=== PATIENT | female | born 1950 | race Caucasian/White ===

== ENCOUNTER 2018-04-22 11:41 | Inpatient (IN) | payer OTHER ==
[2018-04-22 12:26] LABS: ADD MAN DIFF? NO
[2018-04-22 12:27] LABS: BASOPHIL # 0.1 10^3/ul (0.0-0.1); BASOPHILS % 0.5 % (0.0-2.0); EOSINOPHILS # 0.3 10^3/ul (0.0-0.5); EOSINOPHILS % 1.9 % (0.0-7.0); HEMATOCRIT 45.2 % (37.0-47.0); HEMOGLOBIN 15.1 g/dl (12.0-16.0); LYMPHOCYTES # 1.9 10^3/ul (0.8-2.9); LYMPHOCYTES % 11.9 % (15.0-51.0); MEAN CORPUSCULAR HEMOGLOBIN 29.6 pg (29.0-33.0); MEAN CORPUSCULAR HGB CONC 33.4 g/dl (32.0-37.0); MEAN CORPUSCULAR VOLUME 88.6 fl (82.0-101.0); MEAN PLATELET VOLUME 9.9 fl (7.4-10.4); MONOCYTE # 0.9 10^3/ul (0.3-0.9); MONOCYTES % 5.6 % (0.0-11.0); NEUTROPHIL # 12.7 10^3/ul (1.6-7.5); NEUTROPHILS % 79.8 % (39.0-77.0); PLATELET COUNT 282 10^3/UL (140-415); RED CELL DISTRIBUTION WIDTH 11.9 % (11.5-14.5)
[2018-04-22 12:27] LABS: WHITE BLOOD COUNT 15.9 10^3/ul (4.8-10.8)
[2018-04-22] MEDS: morphine 4 MG/ML VIAL IV (12:40)
[2018-04-22 12:44] LABS: ALANINE AMINOTRANSFERASE 70 IU/L (13-69); ALBUMIN 4.4 g/dl (3.3-4.9); ALBUMIN/GLOBULIN RATIO 1.29; ALKALINE PHOSPHATASE 70 IU/L (42-121); ANION GAP 15 (8-16); ASPARTATE AMINO TRANSFERASE 43 IU/L (15-46); BILIRUBIN,INDIRECT 0.5 mg/dl (0-1.1); BILIRUBIN,TOTAL 0.5 mg/dl (0.2-1.3); BLOOD UREA NITROGEN 12 mg/dl (7-20); CALCIUM 9.3 mg/dl (8.4-10.2); CARBON DIOXIDE 27 mmol/L (21-31); CHLORIDE 104 mmol/L (97-110); CREATININE 0.83 mg/dl (0.44-1.00); GLUCOSE 131 mg/dl (70-220); POTASSIUM 4.1 mmol/L (3.5-5.1); SODIUM 142 mmol/L (135-144); TOTAL PROTEIN 7.8 g/dl (6.1-8.1)
[2018-04-22] MEDS: PIPER-TAZO 3.375 GM IV (PMX) 100 ML IVPB ×2 (13:20→21:20)
[2018-04-22 13:28] LABS: ADD UMIC NO; UR ASCORBIC ACID NEGATIVE (NEGATIVE); UR BILIRUBIN (Dip) NEGATIVE (NEGATIVE); UR BLOOD (Dip) NEGATIVE (NEGATIVE); UR CLARITY CLEAR (CLEAR); UR COLOR YELLOW (YELLOW); UR GLUCOSE (Dip) NEGATIVE (NEGATIVE); UR KETONES (Dip) NEGATIVE (NEGATIVE); UR LEUKOCYTE ESTERASE (Dip) NEGATIVE Leu/ul (NEGATIVE); UR NITRITE (Dip) NEGATIVE (NEGATIVE); UR SPECIFIC GRAVITY (Dip) 1.018 (1.003-1.030); UR TOTAL PROTEIN (Dip) NEGATIVE (NEGATIVE); UR UROBILINOGEN (Dip) NEGATIVE (NEGATIVE)
[2018-04-22] MEDS: SOD CHLORIDE 0.9% 1,000 ML IV ×2 (14:00→16:15)
[2018-04-22] MEDS ORDERED: ONDANSETRON 4 MG INJ IV (14:30)
[2018-04-22] MEDS: ACETAMINOPHEN 325 MG TAB PO (14:55)
[2018-04-22] MEDS ORDERED: INSULIN ASPART [NOVOLOG] 3 ML PEN SC (15:00)
[2018-04-22] MEDS ORDERED: NACL 0.9% 3 ML SYG IV (15:00)
[2018-04-22] MEDS ORDERED: GLUCAGON 1 MG INJ IM (15:30)
[2018-04-22] MEDS ORDERED: GLUCOSE GEL 15 GRAM TUBE PO ×2 (15:30)
[2018-04-22] MEDS ORDERED: GLUCOSE GEL 15 GRAM TUBE BUCCAL (15:30)
[2018-04-22] MEDS ORDERED: DEXTROSE 50% 50 ML SYRINGE IV ×2 (15:30)
[2018-04-22] MEDS: Insulin NOVOLOG SS MILD Algorithm (NPO/TPN/ENTERAL FEEDS) SC ×2 (16:14→21:00)
[2018-04-22 17:07] LABS: HEMOGLOBIN A1C 6.4 % (0-5.9)
[2018-04-22] MEDS: ONDANSETRON 4 MG INJ IV (18:27)
[2018-04-22] MEDS: morphine 2 MG INJ IV (18:27)
[2018-04-22] MEDS: HYDROCODONE/APAP (5/325) TAB PO (20:12)
[2018-04-22] MEDS ORDERED: MIDAZOLAM 1 MG/ML 2 ML INJ (23:07)
[2018-04-22] MEDS: BUPIVACAINE 0.25%/EPI (SDV) 30 ML INJ (23:41)
[2018-04-23] MEDS ORDERED: KETOROLAC 30 MG INJ (00:11)
[2018-04-23] MEDS ORDERED: NEOSTIGMINE 3 MG/3 ML SYRINGE (00:12)
[2018-04-23] MEDS ORDERED: PROPOFOL 20 ML (00:12)
[2018-04-23] MEDS ORDERED: ROCURONIUM 50 MG INJ (00:12)
[2018-04-23] MEDS ORDERED: ONDANSETRON 4 MG INJ (00:12)
[2018-04-23] MEDS ORDERED: GLYCOPYRROLATE 0.4 MG INJ (00:12)
[2018-04-23] MEDS ORDERED: ETOMIDATE 20 MG INJ (00:12)
[2018-04-23] MEDS ORDERED: LIDOCAINE 2% (SDV) 5 ML INJ (00:12)
[2018-04-23] MEDS: SOD CHLORIDE 0.9% 1,000 ML IV ×4 (00:47→20:29)
[2018-04-23] MEDS ORDERED: DIPHENHYDRAMINE 50 MG INJ IV (01:00)
[2018-04-23] MEDS ORDERED: FENTAnyl 50 MCG/ML VIAL IV (01:00)
[2018-04-23] MEDS ORDERED: hydrALAzine 20 MG INJ IV (01:00)
[2018-04-23] MEDS ORDERED: LABETALOL HCL 20MG INJ IV (01:00)
[2018-04-23] MEDS: Insulin NOVOLOG SS MILD Algorithm (NPO/TPN/ENTERAL FEEDS) SC ×3 (01:00→08:41)
[2018-04-23] MEDS ORDERED: MEPERIDINE 25 MG INJ IV (01:00)
[2018-04-23] MEDS ORDERED: HYDROmorphONE 1 MG/5 ML IV SYRINGE IV ×2 (01:00)
[2018-04-23] MEDS ORDERED: ONDANSETRON 4 MG INJ IV (01:00)
[2018-04-23] MEDS ORDERED: HYDROCODONE/APAP (5/325) TAB PO (01:30)
[2018-04-23] MEDS ORDERED: KETOROLAC 15 MG INJ IV (01:30)
[2018-04-23] MEDS ORDERED: HYDROmorphONE 0.5 MG/0.5 ML SYG IV (01:30)
[2018-04-23] MEDS ORDERED: ACETAMINOPHEN 325 MG TAB PO (01:30)
[2018-04-23] MEDS: D5W-0.45 NACL + KCL 20 MEQ 1,000 ML IV ×2 (01:55→13:06)
[2018-04-23] MEDS: PIPER-TAZO 3.375 GM IV (PMX) 100 ML IVPB ×3 (05:37→21:06)
[2018-04-23 05:39] LABS: ADD MAN DIFF? NO
[2018-04-23 05:44] LABS: BASOPHIL # 0.1 10^3/ul (0.0-0.1); BASOPHILS % 0.3 % (0.0-2.0); HEMATOCRIT 39.3 % (37.0-47.0); HEMOGLOBIN 13.1 g/dl (12.0-16.0); LYMPHOCYTES # 1.6 10^3/ul (0.8-2.9); MEAN CORPUSCULAR HEMOGLOBIN 30.1 pg (29.0-33.0); MEAN CORPUSCULAR HGB CONC 33.3 g/dl (32.0-37.0); MEAN CORPUSCULAR VOLUME 90.3 fl (82.0-101.0); MEAN PLATELET VOLUME 10.1 fl (7.4-10.4); MONOCYTE # 1.1 10^3/ul (0.3-0.9); MONOCYTES % 6.3 % (0.0-11.0); NEUTROPHIL # 14.9 10^3/ul (1.6-7.5); NEUTROPHILS % 83.9 % (39.0-77.0); NUCLEATED RED BLOOD CELLS% 0.1 /100WBC (0.0-0.0); PLATELET COUNT 257 10^3/UL (140-415); RED BLOOD COUNT 4.35 10^6/ul (4.20-5.40); RED CELL DISTRIBUTION WIDTH 12.6 % (11.5-14.5)
[2018-04-23 05:44] LABS: WHITE BLOOD COUNT 17.8 10^3/ul (4.8-10.8)
[2018-04-23] MEDS: HYDROCODONE/APAP (5/325) TAB PO ×2 (06:09→15:32)
[2018-04-23 06:12] LABS: CHOL/HDL RATIO 3.2 RATIO; LDL CHOLESTEROL,CALCULATED 87 mg/dl
[2018-04-23 06:14] LABS: CHOLESTEROL 145 mg/dl (100-200); HDL CHOLESTEROL 45 mg/dl (35-98); INR 1.19; MAGNESIUM 1.8 mg/dl (1.7-2.5); PROTIME 15.3 Sec (11.9-14.9); PT RATIO 1.2; TRIGLYCERIDES 67 mg/dl (0-149)
[2018-04-23 06:14] LABS: PHOSPHORUS 4.3 mg/dl (2.5-4.9)
[2018-04-23 06:15] LABS: PARTIAL THROMBOPLASTIN TIME 31.5 Sec (25.0-35.0)
[2018-04-23 06:30] LABS: ALANINE AMINOTRANSFERASE 52 IU/L (13-69); ALBUMIN 3.7 g/dl (3.3-4.9); ALBUMIN/GLOBULIN RATIO 1.23; ALKALINE PHOSPHATASE 48 IU/L (42-121); ANION GAP 15 (8-16); ASPARTATE AMINO TRANSFERASE 25 IU/L (15-46); BILIRUBIN,INDIRECT 0.4 mg/dl (0-1.1); BILIRUBIN,TOTAL 0.4 mg/dl (0.2-1.3); BLOOD UREA NITROGEN 15 mg/dl (7-20); CALCIUM 8.6 mg/dl (8.4-10.2); CARBON DIOXIDE 24 mmol/L (21-31); CHLORIDE 106 mmol/L (97-110); CREATININE 1.04 mg/dl (0.44-1.00); GLUCOSE 166 mg/dl (70-220); POTASSIUM 3.8 mmol/L (3.5-5.1); SODIUM 141 mmol/L (135-144); TOTAL PROTEIN 6.7 g/dl (6.1-8.1)
[2018-04-23] MEDS: BENAZEPRIL 10 MG TAB PO (08:37)
[2018-04-23] MEDS ORDERED: INSULIN ASPART [NOVOLOG] 3 ML PEN SC (12:00)
[2018-04-23] MEDS: Insulin NOVOLOG SS MILD Algorithm (SS with meals and bedtime) SC ×3 (12:00→20:32)
[2018-04-23] MEDS: ACETAMINOPHEN 325 MG TAB PO ×2 (15:54→23:11)
[2018-04-23 17:56] LABS: LACTIC ACID 1.6 mmol/L (0.5-2.0)
[2018-04-23 21:40] LABS: LACTIC ACID 0.9 mmol/L (0.5-2.0)
[2018-04-23] MEDS: hydrALAzine 20 MG INJ IV (23:10)
[2018-04-24] MEDS: ONDANSETRON 4 MG INJ IV (00:21)
[2018-04-24] MEDS: hydrALAzine 20 MG INJ IV (01:11)
[2018-04-24] MEDS: PIPER-TAZO 3.375 GM IV (PMX) 100 ML IVPB ×2 (05:37→14:08)
[2018-04-24] MEDS: SOD CHLORIDE 0.9% 1,000 ML IV ×3 (06:27→14:09)
[2018-04-24] MEDS: morphine 2 MG INJ IV (06:37)
[2018-04-24 06:44] LABS: ADD MAN DIFF? NO
[2018-04-24 06:47] LABS: WHITE BLOOD COUNT 10.5 10^3/ul (4.8-10.8)
[2018-04-24 06:47] LABS: BASOPHIL # 0.1 10^3/ul (0.0-0.1); BASOPHILS % 0.6 % (0.0-2.0); EOSINOPHILS # 0.1 10^3/ul (0.0-0.5); HEMATOCRIT 39.6 % (37.0-47.0); LYMPHOCYTES # 1.4 10^3/ul (0.8-2.9); LYMPHOCYTES % 13.4 % (15.0-51.0); MEAN CORPUSCULAR HEMOGLOBIN 30.2 pg (29.0-33.0); MEAN CORPUSCULAR HGB CONC 32.8 g/dl (32.0-37.0); MEAN CORPUSCULAR VOLUME 91.9 fl (82.0-101.0); MONOCYTE # 0.8 10^3/ul (0.3-0.9); MONOCYTES % 7.9 % (0.0-11.0); NEUTROPHILS % 76.3 % (39.0-77.0); PLATELET COUNT 216 10^3/UL (140-415); RED BLOOD COUNT 4.31 10^6/ul (4.20-5.40); RED CELL DISTRIBUTION WIDTH 12.2 % (11.5-14.5)
[2018-04-24 07:10] LABS: ANION GAP 13 (8-16); BLOOD UREA NITROGEN 8 mg/dl (7-20); CALCIUM 8.3 mg/dl (8.4-10.2); CARBON DIOXIDE 25 mmol/L (21-31); CHLORIDE 106 mmol/L (97-110); CREATININE 0.73 mg/dl (0.44-1.00); GLUCOSE 130 mg/dl (70-220); POTASSIUM 3.9 mmol/L (3.5-5.1); SODIUM 140 mmol/L (135-144)
[2018-04-24 07:12] LABS: MAGNESIUM 1.9 mg/dl (1.7-2.5)
[2018-04-24 07:12] LABS: PHOSPHORUS 2.3 mg/dl (2.5-4.9)
[2018-04-24] MEDS ORDERED: BISACODYL 10 MG SUPP PR (07:30)
[2018-04-24] MEDS ORDERED: POLYETHYLENE GLYCOL 17 GM PACKET PO (07:30)
[2018-04-24] MEDS: D5W-0.45 NACL + KCL 20 MEQ 1,000 ML IV ×2 (07:34→10:37)
[2018-04-24] MEDS: DOCUSATE SODIUM 100 MG CAP PO (08:49)
[2018-04-24] MEDS: BENAZEPRIL 10 MG TAB PO (08:51)
[2018-04-24] MEDS: Insulin NOVOLOG SS MILD Algorithm (SS with meals and bedtime) SC ×3 (08:57→17:45)
[2018-04-24] MEDS: HYDROCODONE/APAP (5/325) TAB PO ×2 (12:59→19:55)
[2018-04-24] MEDS ORDERED: HYDROmorphONE 2 MG TAB PO (15:00)
[2018-04-24] MEDS ORDERED: morphine LIQ (10 MG/5 ML) CUP PO (15:00)
[2018-04-26] MEDS ORDERED: IBUPROFEN 600 MG TAB PO (01:30)
== END 2018-04-24 20:40 | disposition home or self-care (01) | DRG 342 ==
LOC: E/R 11:41 → MS2 14:02
PROC: 0DTJ4ZZ Resection of Appendix, Percutaneous Endoscopic Approach (ICD-10-PCS; principal; 2018-04-22 23:10)
PROC: 0WQF4ZZ Repair Abdominal Wall, Percutaneous Endoscopic Approach (ICD-10-PCS; 2018-04-22 23:10)
DX: K35.80 Unspecified acute appendicitis (principal); Z68.41 Body mass index [BMI] 40.0-44.9, adult; K42.9 Umbilical hernia without obstruction or gangrene; E66.01 Morbid (severe) obesity due to excess calories; E78.5 Hyperlipidemia, unspecified; I10 Essential (primary) hypertension; E11.9 Type 2 diabetes mellitus without complications
CPT/HCPCS: 36415; 71045; 74176; 80048; 80053; 80061; 81003; 82962; 83036; 83605; 83735; 84100; 84439; 84443; 85025; 85610; 85730; 87040; 88302; 88304; 93005; 96365; 96375; 99285-25